=== PATIENT | male | born 1950 | race Caucasian/White ===

== ENCOUNTER 2018-07-01 10:01 | Emergency (ER) | payer MEDICARE ==
[~2018-07-01] VITALS: Ht 180.3 cm; Wt 102.5 kg
[2018-07-01 10:55] LABS: BASOPHILS # (AUTO) 0.03 x10^3/uL (0-0.1); BASOPHILS % (AUTO) 0 % (0-1); EOSINOPHILS # (AUTO) 0.37 x10^3/uL (0-0.4); EOSINOPHILS % (AUTO) 3 % (1-7); LYMPHOCYTES % (AUTO) 14 % (22-44); MD NO; MEAN CORPUSCULAR HEMOGLOBIN 31.2 pg (27.5-34.5); MEAN CORPUSCULAR HGB CONC 34.4 g/dL (33.2-36.2); MEAN CORPUSCULAR VOLUME 90.5 fL (81-97); MONOCYTES # (AUTO) 1.02 x10^3/uL (0.2-0.8); MONOCYTES % (AUTO) 9 % (2-9); NEUTROPHILS # (AUTO) 8.53 x10^3/uL (1.8-6.8); NEUTROPHILS % (AUTO) 74 % (42-75); PLATELET COUNT 235 x10^3/uL (130-400); RED BLOOD COUNT 5.03 x10^6/uL (4.38-5.82); RED CELL DISTRIBUTION WIDTH 14.6 % (9.4-14.8)
[2018-07-01 11:04] LABS: ALANINE AMINOTRANSFERASE 44 U/L (12-78); ALBUMIN 3.7 g/dL (3.4-5.0); ANION GAP 6 mmol/L (5-15); CALCIUM 8.5 mg/dL (8.5-10.1); CHLORIDE 106 mmol/L (98-107); CREATININE 1.35 mg/dL (0.7-1.3)
[2018-07-01 11:07] LABS: ALKALINE PHOSPHATASE 71 U/L (45-117); BILIRUBIN,TOTAL 0.4 mg/dL (0.2-1.0); TOTAL PROTEIN 8.1 g/dL (6.4-8.2)
[2018-07-01] MEDS ORDERED: CHOL10002 PO (11:17)
[2018-07-01] MEDS ORDERED: RISP3TAB3 PO (11:17)
[2018-07-01] MEDS ORDERED: OMEP-110 PO (11:17)
[2018-07-01] MEDS ORDERED: SERT100T5 PO (11:17)
[2018-07-01] MEDS ORDERED: CLON0.5T PO (11:17)
[2018-07-01] MEDS ORDERED: LIDOCAINE-MPF 1%, 5ML ONE ×2 (11:29)
[2018-07-01] MEDS ORDERED: LIDOCAINE 1%, 10ML INFIL ONE (11:30)
[2018-07-01 11:54] LABS: HCT (SEDRATE) 45.5 % (39.2-51.8)
[2018-07-01] MEDS ORDERED: HYDROcodone/APAP 5/325 TABLET PO ONE (12:00)
[2018-07-01] MEDS ORDERED: INDOMETHACIN 50 MG CAPSULE PO ONE (12:00)
[2018-07-01] MEDS ORDERED: CEFAZOLIN 1,000 MG IM ONE (12:00)
[2018-07-01 12:08] LABS: C-REACTIVE PROTEIN, QUANT 3.3 mg/dL (0.02-0.49)
[2018-07-01] MEDS ORDERED: INDOMETHACIN 50 MG CAPSULE ONE (12:09)
[2018-07-01] MEDS ORDERED: CEFAZOLIN 1,000 MG ONE (12:10)
[2018-07-01] MEDS ORDERED: HYDROcodone/APAP 5/325 TABLET ONE (12:10)
[2018-07-01 12:23] VITALS: BP 164/93
== END 2018-07-01 12:44 | disposition home or self-care (01) ==
LOC: ED 12:30
DX: L03.116 Cellulitis of left lower limb (principal); M10.072 Idiopathic gout, left ankle and foot
CPT/HCPCS: 36415; 73610; 80053; 84550; 85025; 85651; 86140; 93971; 96372; 99284; J0690; J3490

== ENCOUNTER 2020-10-08 10:15 | Emergency (ER) | payer MEDICARE, OTHER ==
[~2020-10-08] VITALS: Ht 180.3 cm; Wt 107.8 kg
[~2020-10-08 10:15] MED LIST: CHOL10002 PO; CLON0.5T PO; OMEP-110 PO; RISP3TAB58 PO; SERT100T32 PO
--- NOTE | 2020-10-08 10:44 | NUR ---
Pt fell out of bed on his right side and states he hit his head but denies LOC. No head trauma noted. Pt went to the chiropractor 3 times since then, "she popped my neck one way but then it didn't pop the other way and my pain is getting worse." Pt also complains of constant JEFFERSON. Pt takes an unknown blood thinner.
[2020-10-08] MEDS ORDERED: CYCLOBENZAPRINE 10 MG TABLET PO ONE (11:00)
[2020-10-08] MEDS ORDERED: CYCLOBENZAPRINE 10 MG TABLET ONE (11:12)
--- NOTE | 2020-10-08 11:39 | NUR ---
Pt remains in imaging.
[2020-10-08 13:00] VITALS: BP 112/70
== END 2020-10-08 13:09 | disposition home or self-care (01) ==
LOC: ED 13:00
DX: M50.120 Mid-cervical disc disorder, unspecified level (principal); M47.22 Other spondylosis with radiculopathy, cervical region; K21.9 Gastro-esophageal reflux disease without esophagitis; I10 Essential (primary) hypertension; M10.9 Gout, unspecified; Z88.9 Allergy status to unspecified drugs, medicaments and biological substances; Z79.899 Other long term (current) drug therapy
CPT/HCPCS: 72141; 99284